=== PATIENT | female | born 1985 | race Caucasian/White ===

== ENCOUNTER 2024-02-14 23:59 | Emergency (ER) | payer OTHER, MEDICARE, SELFPAY ==
[2024-02-15 00:02] VITALS: BP 161/114
[2024-02-15 00:46] LABS: % Basophils 0.4 % (0-2); % Eosinophils 1.9 % (0-6); % Immature Granulocytes 1.2 % (0-0.5); % Lymphocytes 24.5 % (20.5-51.1); % Monocytes 7.4 % (1.7-9.3); % Neutrophils 64.6 % (42.2-75.2); Absolute Eosinophils 0.2 10^3/uL (0-0.7); Absolute Immature Granulocytes 0.1 10^3/uL (0-0.05); Absolute Lymphocytes 2.2 10^3/uL (1.2-3.4); Absolute Monocytes 0.7 10^3/uL (0.1-0.6); Absolute Neutrophils 5.9 10^3/uL (1.4-6.5); Hematocrit 40.5 % (37.0-47.0); Hemoglobin 13.5 g/dL (12.0-16.0); Mean Corp Hgb Conc. 33.3 g/dL (33.0-37.0); Mean Corpuscular Volume 93.1 fL (81.0-99.0); Mean Platelet Volume 10.8 fL (7.4-10.4); Nucleated Red Blood Cells % 0 %; Platelet Count 255 10^3/uL (130-400); Red Blood Cell Count 4.35 10^6/uL (4.20-5.40); Red Cell Dist. Width 12.6 % (11.5-14.5); White Blood Cell Count 9.1 10^3/uL (4.8-10.8)
[2024-02-15 00:52] LABS: ALT (SGPT) 115 U/L (0-35); AST (SGOT) 48 U/L (14-36); Albumin 4.3 g/dl (3.5-5.0); Alkaline Phosphatase 87 U/L (38-126); Blood Urea Nitrogen 12 mg/dl (7-17); Carbon Dioxide 25 mmol/L (22-30); Chloride 104 mmol/L (98-107); Glucose 95 mg/dl (70-99); Potassium 3.9 mmol/L (3.5-5.1); Sodium 137 mmol/L (135-145); Total Bilirubin 1.1 mg/dl (0.2-1.3); eGFR > 60.00
[2024-02-15 03:55] VITALS: BP 143/89
[2024-02-15] MEDS: DELTASONE 50 MG PO (05:35)
[2024-02-15] MEDS: DUONEB 3 ML INH (05:35)
--- NOTE | 2024-02-15 07:47 | ED.GENMED ---
History of Present Illness
General
Chief Complaint: Cold/Flu/URI Symptoms
Source: patient
Exam Limitations: none
Time Seen by Provider: 02/15/24 04:58
Nursing documentation reviewed up to this point in time: agreed with
Travel History
Have you had any contact with someone who has COVID-19?: No
Do you have any symptoms of coronavirus? Fever > 100 degrees, chills, cough, shortness of breath, sore throat, loss of taste or smell, muscle aches, or headache?: No
History of Present Illness
History of Present Illness:
38-year-old female with history as documented presents for evaluation of cough and congestion. Patient reports onset of symptoms 3 days ago and they have been constant since that time. She reports some mild shortness of breath. No chest pain. No
fevers or chills. No GI symptoms. Denies any other complaints.
Past History
Past History
ED Past Medical History: Asthma, Fibromyalgia, Psychiatric (She has a history of anxiety and depression) and Other (She has a history of pneumonia, neck pain, back pain)
ED Past Surgical History: Cholecystectomy, Gynecological (Hysterectomy) and Other (Patient has a history of wisdom teeth extraction, rectal fistula X2)
Social History
Tobacco: Non-smoker
Alcohol: None
Personal:
Living: with family
Employment: Employed
Review of Systems
Review of Systems
All Other Systems: ROS reviewed and negative except as documented in HPI and ROS
Constitutional: Denies fever or chills
EENT: Reports other (Nasal congestion); Denies sore throat
Respiratory: Reports cough and trouble breathing
Cardiac: Denies chest pain or palpitations
ABD/GI: Denies abdominal pain, nausea or vomiting
: Denies flank pain
Musculoskeletal: Denies edema, neck pain or back pain
Neurological: Denies dizzy or headache
Phy Exam
Physical Exam
Physical Exam:
General: Awake, alert, oriented x3; no acute distress
Head: Normocephalic, atraumatic
Eyes: Conjunctiva normal, EOMI
Throat: Airway intact, handling secretions
Neck: Trachea midline, supple without meningismus
Lungs: Normal respiratory rate, normal work of breathing, normal pulse ox on room air; frequent hacking cough; faint scattered wheeze
Heart: Regular rate and rhythm, no murmurs, gallops, or rubs
Neuro: No gross deficits
Skin: no rash
Extremities: No edema in extremities, equal pulses in all extremities
Scores
Heart Failure Risk
Heart Failure Risk Score: Not Applicable
Heart Score for Chest Pain Patients
STEMI patient?: Not applicable
Withdrawal Assessment of Alcohol
Withdrawal Assessment Completed?: Not applicable
Course
Orders/Labs/Results
Orders:
Orders
02/15/24 00:04
IV Insert/Care/Rem.- Treatment PRN
CR Chest - 2 Views Urgent
Comment:
Reason For Exam: respiratory distress
O2 Therapy [RESP] Urgent
Titrate/Wean O2 to maintain O2 sat greater than (%): 93
Special Instructions: TO MAINTAIN CONTINUOUS O2 SATS >/= 93%
Pulse Ox/cont/shift [RESP] Urgent
Quantity: 1
Special Instructions: continuous pulse ox
02/15/24 00:23
Complete Blood Count/With Diff Urgent
Comprehensive Metabolic Panel Urgent
02/15/24 05:21
Ipratropium/Albuterol Sulfate [Duoneb] 3 ml INH R NOW STA
Prednisone [Deltasone] 50 mg PO NOW STA
Abnormal Lab Results
02/15/24
00:23
MPV 10.8 H fL
(7.4-10.4)
Abs Immat Gran (auto) 0.1 H 10^3/uL
(0-0.05)
Absolute Monos (auto) 0.7 H 10^3/uL
(0.1-0.6)
Immature Gran % 1.2 H %
(0-0.5)
AST 48 H U/L
(14-36)
ALT 115 H U/L
(0-35)
02/15/24 00:23
02/15/24 00:23
Vital Signs
Initial and Last Documented VS:
Initial Vital Signs
Temp Pulse Resp BP Pulse Ox
36.7 C 83 19 161/114 98
02/15/24 00:02 02/15/24 00:02 02/15/24 00:02 02/15/24 00:02 02/15/24 00:02
Last Documented Vital Signs
Temp Pulse Resp BP Pulse Ox
36.8 C 71 18 143/89 100
02/15/24 03:55 02/15/24 03:55 02/15/24 03:55 02/15/24 03:55 02/15/24 03:55
MDM/Problems Addressed
Differential Diagnosis Includes:
Asthma exacerbation, pneumonia, bronchitis
MDM/Problems Addressed:
38-year-old female presents for evaluation of cough and nasal congestion over the past 3 days associated with some mild shortness of breath. Hypertensive in triage normalized by my assessment rest of vitals normal. Exam as above. Suspect either
mild asthma exacerbation or acute bronchitis. Labs sent off including a CBC which is unremarkable, CMP which showed mild elevation of transaminases to be related to viral infection. Chest x-ray reviewed by me shows no pneumonia or other acute
pathology. Treated with a DuoNeb and steroid, will discharge on short course of prednisone and advised to take albuterol at home, will also prescribe Tessalon Perles for coughing. Patient is comfortable with this plan. Spoke about return
precautions all questions answered.
Chronic conditions affecting care:
Asthma
*Radiology
Radiology exam reviewed: preliminary read by ED provider
*Pulse Oximetry
Patient hypoxic: no
*Critical Care Note
Total Time (30-74mins, 75-104mins- exclusive of procedures): Not Applicable
Data Reviewed
Source: patient and family (Mother)
ED Attending Note
-
Portions of this chart may have been created with voice recognition software.� Occasional wrong word or��sound alike� substitutions may have occurred due to the inherent limitations of voice recognition software.
Discharge Plan
Departure
Patient Disposition: Home (Routine Discharge)
Date of Disposition: 02/15/24
Time of Disposition: 05:50
Patient with high blood pressure during this ER visit?: Yes
Discharge Problem:
Bronchitis
Instructions: Acute Bronchitis, Adult (DC), BLOOD PRESSURE
Prescriptions:
New
prednisone 10 mg Tablet
See Rx Instructions .ROUTE .COMPLEX Qty: 45 0RF
Rx Instructions:
Take By Mouth:
50 mg daily x3 days, 40 mg daily x3 days,
30 mg daily x3 days, 20 mg daily x3 days,
10 mg daily x3 days
benzonatate 200 mg capsule
200 mg PO TID PRN (Reason: Cough) Qty: 20 0RF
No Action
alprazolam 1 MG tablet
1 mg PO TID
quetiapine [Seroquel] 300 MG tablet
300 mg PO HS
cholecalciferol (vitamin D3) 5,000 UNIT tablet,disintegrating
5,000 unit PO DAILY
Phazyme 250 MG capsule
250 mg PO PRN PRN (Reason: gas)
Humira:
40 mg SC Q2W
albuterol sulfate 1 PUFF HFA aerosol inhaler
1 - 2 puff inhalation PRN PRN (Reason: SOB)
Patient Comments:
patient last took months ago
cyclobenzaprine 10 mg Tablet
20 mg PO BID
Rx Instructions:
2 tabs in am and 2 tabs at bedtime
propranolol 80 mg Tablet
80 mg PO BID
prochlorperazine maleate [Compazine] 5 mg Tablet
5 mg PO .PRN,Q8H PRN (Reason: nausea)
ondansetron HCl 8 mg Tablet
8 mg PO PRN PRN (Reason: nausea)
alprazolam 0.5 mg Tablet
0.5 mg PO PRN PRN (Reason: anxiety)
Rx Instructions:
take with 1 mg if need more for breakthrough anxiety
lithium carbonate 600 mg Capsule
600 mg PO BID
eletriptan [Relpax] 40 mg Tablet
40 mg PO DAILY MDD 80 mg PRN (Reason: Migraine Headaches)
Rx Instructions:
Can take additional 40 mg two hours later if needed
duloxetine [Cymbalta] 60 mg Capsule,Delayed Release(Dr/Ec)
120 mg PO DAILY
hydrocodone-acetaminophen 5-325 mg tablet
1 tab PO Q6H PRN (Reason: pain) Qty: 20 0RF
trazodone 150 MG tablet
150 mg PO HS
Medical Cannabis-Patient's Own
inhalation PRN PRN (Reason: pain)
Patient Comments:
vapes
Referrals:
Mesfin Elias MD [Family Provider] - Follow up in 5-7 days
Activity Restrictions/Additional Instructions:
Thank you for visiting the Emergency Department at [facility].
1. Please schedule a follow up appointment as directed. Call first thing tomorrow morning to make an appointment.
2. If indicated, please take your medications as instructed and indicated on discharge paperwork.
3. If any of your symptoms do not improve, or persist, or become more severe within 6-12 hours, please return to the emergency department for further care.
4. Please return to the emergency department if you develop a headache, neck pain/stiffness, fever greater than 100.4F, chest pain, shortness of breath, persistent nausea, vomiting, slurred speech, difficulty walking, numbness/tingling, weakness,
signs of infection or any other symptoms that are worrisome to you.
Please call [phone] if you have any questions.
Interventions
Interventions:
*Risk Screen - Suicide Last Done: 02/15/24 00:02
*General Assessment Last Done: 02/15/24 00:02
*Neglect/Abuse Screening Last Done: 02/15/24 00:02
ED- Fall Risk Assessment Last Done: 02/15/24 05:00
*ED COVID-19 Vaccine History Last Done: 02/15/24 00:02
*Nursing Disposition Last Done: 02/15/24 06:08
ED- Pulmonary Assessment Last Done: 02/15/24 05:00
Discharge Date and Time
Discharge Date/Time: 02/15/24 06:09
Print Language: GUATEMALAN
== END 2024-02-15 06:09 | disposition home or self-care (01) ==
LOC: EMR 23:59
PROVIDERS: EMERGENCY PHYSICIAN Emergency Medicine; FAMILY PHYSICIAN Family Medicine
DX: J20.9 Acute bronchitis, unspecified (principal); R03.0 Elevated blood-pressure reading, without diagnosis of hypertension; J45.909 Unspecified asthma, uncomplicated; M79.7 Fibromyalgia; F41.9 Anxiety disorder, unspecified; F32.A Depression, unspecified; Z87.01 Personal history of pneumonia (recurrent); Z90.49 Acquired absence of other specified parts of digestive tract; Z88.1 Allergy status to other antibiotic agents; Z88.8 Allergy status to other drugs, medicaments and biological substances; Z91.048 Other nonmedicinal substance allergy status
CPT/HCPCS: 99283; 94640; 71046; 80053; 85025

== ENCOUNTER 2024-07-12 13:01 | Outpatient (RCR) | payer OTHER, MEDICARE, SELFPAY | END 2024-07-12 23:59 | disposition home or self-care (01) | LOC: RPT 13:01 | PROVIDERS: ATTENDING PHYSICIAN Surgery; FAMILY PHYSICIAN Family Medicine | DX: R15.9 Full incontinence of feces (principal); M62.89 Other specified disorders of muscle; N39.41 Urge incontinence; R15.2 Fecal urgency; R39.15 Urgency of urination | CPT/HCPCS: 97112; 97140; 97163; 97530 ==

== ENCOUNTER 2024-08-07 11:06 | Outpatient (RCR) | payer OTHER, MEDICARE, SELFPAY | END 2024-08-07 23:59 | disposition home or self-care (01) | LOC: RPT 11:06 | PROVIDERS: ATTENDING PHYSICIAN Surgery; FAMILY PHYSICIAN Family Medicine | DX: R15.9 Full incontinence of feces (principal); M62.89 Other specified disorders of muscle; N39.41 Urge incontinence; R15.2 Fecal urgency; Z73.6 Limitation of activities due to disability; R39.15 Urgency of urination | CPT/HCPCS: 97140; 97530 ==

== ENCOUNTER 2024-09-12 10:59 | Outpatient (RCR) | payer OTHER, MEDICARE, SELFPAY | END 2024-09-12 23:59 | disposition home or self-care (01) | LOC: RPT 10:59 | PROVIDERS: ATTENDING PHYSICIAN Surgery; FAMILY PHYSICIAN Family Medicine | DX: R15.9 Full incontinence of feces (principal); M62.89 Other specified disorders of muscle; N39.41 Urge incontinence; R15.2 Fecal urgency; Z73.6 Limitation of activities due to disability; R39.15 Urgency of urination | CPT/HCPCS: 97112; 97140; 97530 ==

== ENCOUNTER → 2024-09-28 10:31 | Outpatient (REF) | payer OTHER, SELFPAY ==
[2024-09-29 18:27] LABS: Urine Albumin Trace (Neg - Trace); Urine Bilirubin Negative (Negative); Urine Character Clear (Clear); Urine Color Yellow; Urine Glucose Negative (Negative); Urine Ketone 1+ (Negative); Urine Leukocyte Negative (Negative); Urine Nitrite Negative (Negative); Urine Occult Blood Negative (Negative); Urine Urobilinogen Negative (Neg - 1+)
== END ==
LOC: CLAB 10:31
PROVIDERS: ATTENDING PHYSICIAN Obstetrics & Gynecology
DX: N39.0 Urinary tract infection, site not specified (principal)
CPT/HCPCS: 81003; 87086

== ENCOUNTER 2024-10-13 10:54 | Outpatient (RCR) | payer OTHER, SELFPAY | END 2024-10-13 23:59 | disposition home or self-care (01) | LOC: RPT 10:54 | PROVIDERS: ATTENDING PHYSICIAN Surgery; FAMILY PHYSICIAN Family Medicine | DX: R15.9 Full incontinence of feces (principal); M62.89 Other specified disorders of muscle; N39.41 Urge incontinence; Z73.6 Limitation of activities due to disability; R15.2 Fecal urgency; R39.15 Urgency of urination | CPT/HCPCS: 97140; 97163; 97530 ==

== ENCOUNTER 2024-11-06 12:59 | Outpatient (RCR) | payer OTHER, SELFPAY | END 2024-11-06 23:59 | disposition home or self-care (01) | LOC: RPT 12:59 | PROVIDERS: ATTENDING PHYSICIAN Surgery; FAMILY PHYSICIAN Family Medicine | DX: R15.9 Full incontinence of feces (principal); M62.89 Other specified disorders of muscle; N39.41 Urge incontinence; R15.2 Fecal urgency; Z73.6 Limitation of activities due to disability; R39.15 Urgency of urination | CPT/HCPCS: 97014; 97112; 97140; 97530 ==

== ENCOUNTER 2024-12-04 11:00 | Outpatient (RCR) | payer OTHER, SELFPAY | END 2024-12-04 23:59 | disposition home or self-care (01) | LOC: RPT 11:00 | PROVIDERS: ATTENDING PHYSICIAN Surgery; FAMILY PHYSICIAN Family Medicine | DX: R15.9 Full incontinence of feces (principal); M62.89 Other specified disorders of muscle; N39.41 Urge incontinence; R15.2 Fecal urgency; Z73.6 Limitation of activities due to disability; R39.15 Urgency of urination | CPT/HCPCS: 97140; 97530 ==

== ENCOUNTER 2025-01-09 09:59 | Outpatient (RCR) | payer OTHER, SELFPAY | END 2025-01-09 23:59 | disposition home or self-care (01) | LOC: RPT 09:59 | PROVIDERS: ATTENDING PHYSICIAN Surgery; FAMILY PHYSICIAN Family Medicine | DX: R15.9 Full incontinence of feces (principal); M62.89 Other specified disorders of muscle; N39.41 Urge incontinence; R15.2 Fecal urgency; Z73.6 Limitation of activities due to disability; R39.15 Urgency of urination | CPT/HCPCS: 97110; 97112; 97140; 97530 ==

== ENCOUNTER → 2025-01-16 12:02 | Outpatient (REF) | payer OTHER, SELFPAY | LOC: MRI 12:02 | PROVIDERS: ATTENDING PHYSICIAN Ophthalmology; FAMILY PHYSICIAN Family Medicine | DX: H05.20 Unspecified exophthalmos (principal); R51.9 Headache, unspecified | CPT/HCPCS: 70543; 70553; A9575 ==

== ENCOUNTER 2025-02-08 10:58 | Outpatient (RCR) | payer OTHER, SELFPAY | END 2025-02-08 23:59 | disposition home or self-care (01) | LOC: RPT 10:58 | PROVIDERS: ATTENDING PHYSICIAN Surgery; FAMILY PHYSICIAN Family Medicine | DX: R15.9 Full incontinence of feces (principal); M62.89 Other specified disorders of muscle; N39.41 Urge incontinence; R15.2 Fecal urgency; Z73.6 Limitation of activities due to disability; R39.15 Urgency of urination | CPT/HCPCS: 97014; 97112; 97140; 97530 ==

== ENCOUNTER 2025-03-08 11:00 | Outpatient (RCR) | payer OTHER, SELFPAY | END 2025-03-08 23:59 | disposition home or self-care (01) | LOC: RPT 11:00 | PROVIDERS: ATTENDING PHYSICIAN Surgery; FAMILY PHYSICIAN Family Medicine | DX: R15.9 Full incontinence of feces (principal); M62.89 Other specified disorders of muscle; N39.41 Urge incontinence; R15.2 Fecal urgency; Z73.6 Limitation of activities due to disability; R39.15 Urgency of urination | CPT/HCPCS: 97110; 97140; 97530 ==

== ENCOUNTER 2025-04-10 11:40 | Outpatient (RCR) | payer OTHER, SELFPAY | END 2025-04-10 23:59 | disposition home or self-care (01) | LOC: RPT 11:40 | PROVIDERS: ATTENDING PHYSICIAN Surgery; FAMILY PHYSICIAN Family Medicine | DX: R15.9 Full incontinence of feces (principal); M62.89 Other specified disorders of muscle; N39.41 Urge incontinence; R15.2 Fecal urgency; Z73.6 Limitation of activities due to disability; R39.15 Urgency of urination | CPT/HCPCS: 97110; 97140; 97530 ==

== ENCOUNTER 2025-06-07 11:48 | Outpatient (RCR) | payer OTHER, SELFPAY | END 2025-06-07 23:59 | disposition home or self-care (01) | LOC: RPT 11:48 | PROVIDERS: ATTENDING PHYSICIAN Surgery; FAMILY PHYSICIAN Family Medicine | DX: R15.9 Full incontinence of feces (principal); M62.89 Other specified disorders of muscle; N39.41 Urge incontinence; R15.2 Fecal urgency; Z73.6 Limitation of activities due to disability; R39.15 Urgency of urination | CPT/HCPCS: 97014; 97112; 97140; 97530 ==

== ENCOUNTER 2025-07-12 10:55 | Outpatient (RCR) | payer OTHER, SELFPAY | END 2025-07-12 23:59 | disposition home or self-care (01) | LOC: RPT 10:55 | PROVIDERS: ATTENDING PHYSICIAN Surgery; FAMILY PHYSICIAN Family Medicine | DX: R15.9 Full incontinence of feces (principal); M62.89 Other specified disorders of muscle; N39.41 Urge incontinence; R15.2 Fecal urgency; Z73.6 Limitation of activities due to disability; R39.15 Urgency of urination | CPT/HCPCS: 97014; 97112; 97140; 97530 ==

== ENCOUNTER 2025-07-27 07:00 | Outpatient (RCR) | payer OTHER, SELFPAY | END 2025-07-27 23:59 | disposition home or self-care (01) | LOC: RPT 07:00 | PROVIDERS: ATTENDING PHYSICIAN Surgery; FAMILY PHYSICIAN Family Medicine | DX: R15.9 Full incontinence of feces (principal); M62.89 Other specified disorders of muscle; N39.41 Urge incontinence; R15.2 Fecal urgency; Z73.6 Limitation of activities due to disability; R39.15 Urgency of urination | CPT/HCPCS: 97014; 97112; 97140; 97530 ==

== ENCOUNTER → 2025-08-27 10:48 | Outpatient (REF) | payer OTHER, SELFPAY | LOC: RAD 10:48 | PROVIDERS: ATTENDING PHYSICIAN Internal Medicine; FAMILY PHYSICIAN Family Medicine | DX: R13.19 Other dysphagia (principal) | CPT/HCPCS: 74221 ==

== ENCOUNTER 2025-09-12 10:08 | Outpatient (RCR) | payer OTHER, SELFPAY | END 2025-09-12 23:59 | disposition home or self-care (01) | LOC: RPT 10:08 | PROVIDERS: ATTENDING PHYSICIAN Surgery; FAMILY PHYSICIAN Family Medicine | DX: R15.9 Full incontinence of feces (principal); M62.89 Other specified disorders of muscle; N39.41 Urge incontinence; R15.2 Fecal urgency; Z73.6 Limitation of activities due to disability; R39.15 Urgency of urination | CPT/HCPCS: 97014; 97112; 97140; 97530 ==